=== PATIENT | male | born 1935 | race Caucasian/White ===

== ENCOUNTER 2018-07-29 11:43 | Emergency (ER) | payer MEDICARE, OTHER ==
--- NOTE | 2018-07-30 13:51 | EKG ---
Test Reason : Blood Pressure : / mmHG Vent. Rate : 072 BPM Atrial Rate : 072 BPM P-R Int : 194 ms QRS Dur : 110 ms QT Int : 416 ms P-R-T Axes : 027 -04 027 degrees QTc Int : 455 ms Sinus rhythm with marked sinus arrhythmia Otherwise normal ECG Confirmed by JAMEY SCHERER D.O. ([id number]), greeting card editor DHIRAJ JOLLEY ([id number]) on 07/30/2018 1:51:22 PM Referred By: Confirmed By:JAMEY SCHERER D.O.
== END 2018-07-29 13:25 | disposition home or self-care (01) ==
LOC: ERS 11:43
DX: I10 Essential (primary) hypertension (principal); E78.5 Hyperlipidemia, unspecified; E03.9 Hypothyroidism, unspecified; Z79.82 Long term (current) use of aspirin
CPT/HCPCS: 93005

== ENCOUNTER 2018-12-09 09:39 | Outpatient (CLI) | payer MEDICARE, OTHER ==
--- NOTE | 2018-12-09 10:45 | ULT ---
Exam: Liver ultrasound with color and spectral Doppler imaging and vascular duplex: HISTORY: Cirrhosis Coarse liver echogenicity with some minimal nodularity evidence for clinical concern for cirrhosis. S tatus post cholecystectomy. Common bile duct 0.3 cm. Borderline size spleen. Mostly obscured pancreas. Vascular duplex with color and spectral Doppler imaging demonstrates antegrade hepatic venous and por pepe venous flow. IMPRESSION: Evidence for cirrhosis. Antegrade hepatic and portal venous flow.
== END 2018-12-09 09:40 | disposition home or self-care (01) ==
LOC: BICULT 09:39
PROVIDERS: ATTEND Physician Assistant Medical
DX: K74.60 Unspecified cirrhosis of liver (principal); K59.00 Constipation, unspecified; Z86.010 Personal history of colon polyps; Z86.19 Personal history of other infectious and parasitic diseases
CPT/HCPCS: 76705

== ENCOUNTER 2019-08-17 08:11 | Outpatient (CLI) | payer MEDICARE, OTHER ==
--- NOTE | 2019-08-17 11:14 | ULT ---
HEPATIC ULTRASOUND EXAMINATION WITH DOPPLER EVALUATION: HISTORY: Cirrhosis. COMPARISON: 12/09/2018. FINDINGS: There is coarsened echotexture of the liver with nodular peripheral contour, and the liver does appea r small in size suggesting cirrhosis. The gallbladder is not visualized compatible with patient's history of prior cholecystectomy. The spleen is mildly enlarged measuring 14 cm in craniocaudal dimensions. The visualized portions of the IVC and pancreas demonstrate a normal sonographic appearance. There are 2 anechoic cystic structures seen in the right kidney, the largest mid portion of the right kidney measuring 4.2 cm demonstrating sonographic characteristics compatible with a cyst. There is a smaller 1.7 cm anechoic lesion seen in the superior pole right kidney. There is artifact seen thro ugh this region which limits adequate evaluation, but this also likely represents a small cyst. A sm all 1.7 cm anechoic cystic structure is seen in the mid portion left kidney compatible with a cyst. The left kidney measures 11.2 cm in length with the right kidney measuring 12.7 cm in length. HEPATIC DOPPLER EVALUATION WITH SPECTRAL ANALYSIS AND COLOR FLOW: There is normal directional flow seen within the portal, hepatic, and splenic veins with arterial wav eforms identified in the hepatic and splenic arteries. IMPRESSION: 1. Cirrhosis and mild splenomegaly. 2. Bilateral renal cysts. 3. Normal directional flow is present within the hepatic, splenic, and portal veins. 4. Evidence of cholecystectomy. The common duct measures 0.5 cm in diameter which is within normal limits. POS: C
== END 2019-08-17 08:12 | disposition home or self-care (01) ==
LOC: BICULT 08:11
PROVIDERS: ATTEND Physician Assistant Medical
DX: K74.60 Unspecified cirrhosis of liver (principal); Z86.19 Personal history of other infectious and parasitic diseases; R16.1 Splenomegaly, not elsewhere classified; N28.1 Cyst of kidney, acquired; Z90.49 Acquired absence of other specified parts of digestive tract
CPT/HCPCS: 76705

== ENCOUNTER 2021-11-22 08:17 | Outpatient (CLI) | payer MEDICARE, OTHER ==
[2021-11-22] MEDS ORDERED: Magnevist 469MG/ML 20 ML VIAL ONE (10:40)
[2021-11-22] MEDS ORDERED: Acetaminophen 325 MG TAB PO PRN (14:18)
[2021-11-22] MEDS ORDERED: Senokot S 8.6-50 MG TAB PO PRN (14:18)
[2021-11-22] MEDS ORDERED: hydrALAZINE 20 MG/ML VIAL SLOW IVP PRN (14:18)
[2021-11-22] MEDS ORDERED: Bisacodyl 5 MG TAB PO PRN (14:18)
[2021-11-22] MEDS ORDERED: Acetaminophen 650 MG Suppository PR PRN (14:18)
[2021-11-22] MEDS ORDERED: Multivitamins, Adult 10 ML, Folic Acid 1 MG, Thiamine HCl 100 MG in Dextrose 5 %-0.45 %... IV SCH (15:15)
[2021-11-23] MEDS ORDERED: Aspirin 81 mg Enteric Coated Tablet PO SCH (09:00)
== END 2021-11-22 08:18 | disposition home or self-care (01) ==
LOC: MRI 08:17
PROVIDERS: ATTEND Internal Medicine
DX: G46.3 Brain stem stroke syndrome (principal); I65.21 Occlusion and stenosis of right carotid artery
CPT/HCPCS: 70553; 82565

== ENCOUNTER 2021-11-22 12:04 | Observation (INO) | payer MEDICARE, OTHER ==
[2021-11-22 13:04] LABS: #Eosinphils 0.2 thou/uL (0.0-0.7); #Lymphocytes 2.2 thou/uL (1.20-3.40); #Monocytes 0.7 thou/uL (0.11-0.59); #Neutrophils 4.9 thou/uL (1.40-6.50); %Basophils 0.5 % (0.0-1.0); %Eosinophils 2.2 % (0.0-10.0); %Lymphocytes 27.6 % (21.0-51.0); %Monocytes 8.8 % (0.0-10.0); %Neutrophils 60.9 % (42.0-75.0); Hemoglobin 14.6 g/dL (14.0-18.0); Mean Corpuscular HGB CONC 32.1 g/dL (32.0-36.0); Mean Corpuscular Hemoglobin 30.2 pg (27.0-31.0); Mean Corpuscular Volume 94.1 fL (78.0-98.0); Mean Platelet Volume 9.3 fL (7.4-10.4); Platelet Count 132 thou/uL (130-400); RBC Distribution Width 11.7 % (11.5-14.5); Red Blood Cell (RBC) Count 4.84 mill/uL (4.70-6.10); White Blood Cell (WBC) Count 8.1 thou/uL (4.8-10.8)
[2021-11-22 13:29] LABS: Bilirubin Negative (Negative); Blood, Urine Negative (Negative); Clarity Clear (Clear); Glucose, Urine (Dipstick) Normal (Negative); Ketone, Urine Negative (Negative); Leukocyte Negative Leu/uL (Negative); Nitrite Negative (Negative); Protein, Urine (Dipstick) Negative (Neg-Trace); Specific Gravity, Urine 1.034 (1.002-1.036); Urobilinogen Normal mg/dL (Less than 2); pH, Urine 5.5 (5.0-9.0)
[2021-11-22 13:29] LABS: ALT (SGPT) 21 U/L (8-55); AST (SGOT) 18 U/L (5-34); Albumin 3.8 g/dL (3.4-4.8); Alkaline Phosphatase 51 U/L (40-110); Anion Gap 9 mmol/L (10-20); BUN (Urea Nitrogen) 20 mg/dL (8.4-25.7); Bilirubin, Total 0.5 mg/dL (0.2-1.2); CK (CPK) 72 U/L (30-200); Calc. Creatinine Clearance 0 mL/min (70-130); Carbon Dioxide 29 mmol/L (23-31); Chloride 105 mmol/L (98-107); Globulin 3.6 g/dL (2.4-3.5); Glucose 103 mg/dL (83-110); Potassium 4.5 mmol/L (3.5-5.1); Protein, Total 7.4 g/dL (5.8-8.1); Sodium 138 mmol/L (136-145)
[2021-11-22] MEDS ORDERED: Senokot S 8.6-50 MG TAB PO PRN (15:16)
[2021-11-22] MEDS ORDERED: Ondansetron ODT 4 MG TAB PO PRN ×2 (15:16)
[2021-11-22] MEDS ORDERED: Bisacodyl 5 MG TAB PO PRN (15:16)
[2021-11-22] MEDS ORDERED: Acetaminophen 325 MG TAB PO PRN (15:16)
[2021-11-22] MEDS ORDERED: hydrALAZINE 20 MG/ML VIAL SLOW IVP PRN (15:16)
[2021-11-22] MEDS ORDERED: Ondansetron PF 4 MG/2 ML Vial IVP PRN (15:16)
[2021-11-22] MEDS ORDERED: Acetaminophen 650 MG Suppository PR PRN (15:16)
[2021-11-22] MEDS ORDERED: Folic Acid 1 MG TAB PO SCH (15:30)
[2021-11-22] MEDS ORDERED: Multivit, Therapeutic 1 TAB PO SCH (15:30)
[2021-11-22] MEDS ORDERED: Electrolyte Replacement Protocol FS PRN (15:30)
[2021-11-22] MEDS ORDERED: Electrolyte Replacement Protocol 1 EACH FS SCH (15:30)
[2021-11-22 16:07] LABS: Hemoglobin A1c 6.1 % (4.0-6.0)
[2021-11-22 16:21] LABS: ALT (SGPT) 21 U/L (8-55); AST (SGOT) 19 U/L (5-34); Albumin 3.8 g/dL (3.4-4.8); Alkaline Phosphatase 46 U/L (40-110); Anion Gap 13 mmol/L (10-20); BUN (Urea Nitrogen) 20 mg/dL (8.4-25.7); Bilirubin, Total 0.7 mg/dL (0.2-1.2); Calc. Creatinine Clearance 0 mL/min (70-130); Calcium 8.7 mg/dL (7.8-10.44); Carbon Dioxide 26 mmol/L (23-31); Chloride 104 mmol/L (98-107); Globulin 3.6 g/dL (2.4-3.5); Glucose 99 mg/dL (83-110); Magnesium 2.5 mg/dL (1.6-2.6); Potassium 4.4 mmol/L (3.5-5.1); Protein, Total 7.4 g/dL (5.8-8.1); Sodium 139 mmol/L (136-145)
[2021-11-22 17:01] VITALS: BMI 33.9
[2021-11-22] MEDS: Thiamine HCl 200 MG/2 ML VIAL SLOW IVP SCH (18:17)
[2021-11-22] MEDS: Icosapent Ethyl 1 GM CAPSULE PO SCH (20:23)
[2021-11-22] MEDS ORDERED: Atorvastatin Calcium 10 MG TAB PO SCH (21:00)
[2021-11-23 05:50] LABS: Hemoglobin 13.9 g/dL (14.0-18.0); Mean Corpuscular HGB CONC 32.9 g/dL (32.0-36.0); Mean Corpuscular Hemoglobin 30.9 pg (27.0-31.0); Mean Corpuscular Volume 93.9 fL (78.0-98.0); RBC Distribution Width 11.5 % (11.5-14.5); Red Blood Cell (RBC) Count 4.49 mill/uL (4.70-6.10); White Blood Cell (WBC) Count 6.1 thou/uL (4.8-10.8)
[2021-11-23 06:00] LABS: Anion Gap 12 mmol/L (10-20); BUN (Urea Nitrogen) 18 mg/dL (8.4-25.7); Calc. Creatinine Clearance 84 mL/min (70-130); Calcium 8.7 mg/dL (7.8-10.44); Carbon Dioxide 27 mmol/L (23-31); Cardiac Risk 4.3 (Less than 4.5); Chloride 105 mmol/L (98-107); Cholesterol 133 mg/dl (< 200 Desired); Glucose 107 mg/dL (83-110); HDL Cholesterol 31 mg/dL (>60 Neg Risk); LDL Cholesterol, Calculated 77 mg/dL; Potassium 4.8 mmol/L (3.5-5.1); Sodium 139 mmol/L (136-145); Triglycerides 125 mg/dL (Less than 150)
[2021-11-23] MEDS ORDERED: Levothyroxine Sodium 75 MCG TAB PO SCH (06:00)
[2021-11-23 06:08] LABS: #Eosinphils 0.2 thou/uL (0.0-0.7); #Lymphocytes 1.6 thou/uL (1.20-3.40); #Monocytes 0.6 thou/uL (0.11-0.59); #Neutrophils 3.7 thou/uL (1.40-6.50); %Basophils 0.5 % (0.0-1.0); %Lymphocytes 25.7 % (21.0-51.0); %Monocytes 10.3 % (0.0-10.0); %Neutrophils 60.6 % (42.0-75.0); Mean Platelet Volume 9.3 fL (7.4-10.4); Platelet Count 99 thou/uL (130-400); Platelet Morphology Comment Appears Decreased
[2021-11-23] MEDS: Icosapent Ethyl 1 GM CAPSULE PO SCH ×3 (08:15→17:46)
[2021-11-23] MEDS ORDERED: Lisinopril 5 MG TAB PO SCH (09:00)
[2021-11-23] MEDS ORDERED: Clopidogrel Bisulfate 75 MG TAB PO SCH ×2 (09:00)
[2021-11-23] MEDS ORDERED: Multivit, Therapeutic 1 TAB PO SCH (09:00)
[2021-11-23] MEDS ORDERED: Tamsulosin HCl 0.4 MG CAP PO SCH (09:00)
[2021-11-23] MEDS ORDERED: Folic Acid 1 MG TAB PO SCH (09:00)
[2021-11-23] MEDS ORDERED: Aspirin 81 mg Enteric Coated Tablet PO SCH (09:00)
[2021-11-23 12:40] LABS: SARS-CoV-2 PCR by NAA Not Detected (NotDetected)
[2021-11-23] MEDS: Thiamine HCl 200 MG/2 ML VIAL SLOW IVP SCH (15:18)
[2021-11-23 16:40] VITALS: BP 140/74; TEMP 97.2
[2021-11-25] MEDS ORDERED: Thiamine 100 MG TAB PO SCH (15:30)
== END 2021-11-23 18:10 | disposition home or self-care (01) ==
LOC: ERS 12:04 → NEURO 15:15
PROVIDERS: ADMIT Internal Medicine; ATTEND Internal Medicine
DX: M48.02 Spinal stenosis, cervical region (principal); E53.8 Deficiency of other specified B group vitamins; R73.03 Prediabetes; R53.1 Weakness; I65.21 Occlusion and stenosis of right carotid artery; I10 Essential (primary) hypertension; E78.5 Hyperlipidemia, unspecified; E03.9 Hypothyroidism, unspecified; N40.0 Benign prostatic hyperplasia without lower urinary tract symptoms; M50.321 Other cervical disc degeneration at C4-C5 level; Z87.891 Personal history of nicotine dependence; Z79.02 Long term (current) use of antithrombotics/antiplatelets; Z79.890 Hormone replacement therapy; Z79.899 Other long term (current) drug therapy; Z20.822 Contact with and (suspected) exposure to COVID-19; G46.3 Brain stem stroke syndrome
CPT/HCPCS: 70553; 72141; 80048; 80061; 81003; 82550; 82565; 82607; 82746; 83036; 83735; 83880; 84100; 84484; 85025; 93005; 96374; 96376; 97116; 97139 ×3; 97530; 97535; 99285; G0378 ×3; U0003; U0005; 36415; 80053; 84443; A9579; J3411

== ENCOUNTER 2021-12-18 09:50 | Outpatient (CLI) | payer MEDICARE, OTHER ==
[2021-12-18 11:19] LABS: Hemoglobin 14.4 g/dL (13.5-17.5); Mean Corpuscular HGB CONC 32.2 g/dL (32.0-36.0); Mean Corpuscular Hemoglobin 29.3 pg (27.0-33.0); Mean Corpuscular Volume 90.9 fl (81.2-95.1); Mean Platelet Volume 12.4 fl (7.4-10.4); Platelet Count 128 10x3/uL (150-450); RBC Distribution Width 12.2 % (11.5-14.5); Red Blood Cell (RBC) Count 4.92 10x6/uL (4.32-5.72); White Blood Cell (WBC) Count 6.6 10x3/uL (3.5-10.5)
[2021-12-18 11:44] LABS: Anion Gap 14 mmol/L (10-20); BUN (Urea Nitrogen) 19 mg/dL (8.4-25.7); Calc. Creatinine Clearance 0 mL/min (70-130); Calcium 8.9 mg/dL (7.8-10.44); Carbon Dioxide 26 mmol/L (23-31); Chloride 105 mmol/L (98-107); Glucose 179 mg/dL (83-110); Potassium 4.2 mmol/L (3.5-5.1); Sodium 141 mmol/L (136-145)
[2021-12-18 20:34] LABS: SARS-CoV-2 PCR by NAA Not Detected (NotDetected)
== END 2021-12-18 09:51 | disposition home or self-care (01) ==
LOC: LABBT 09:50
PROVIDERS: ATTEND Neurological Surgery
DX: Z01.812 Encounter for preprocedural laboratory examination (principal); M47.12 Other spondylosis with myelopathy, cervical region; Z20.822 Contact with and (suspected) exposure to COVID-19
CPT/HCPCS: 80048; 85027; U0003; U0005

== ENCOUNTER 2021-12-23 07:49 | Observation (INO) | payer MEDICARE, OTHER ==
[2021-12-19 14:36] VITALS: BMI 33.4
[2021-12-23] MEDS ORDERED: fentaNYL Citrate/PF 100 MCG/2 ML SYRINGE ONE (11:03)
[2021-12-23] MEDS ORDERED: Phenylephrine 10 MG/ML VIAL ONE (11:04)
[2021-12-23] MEDS ORDERED: CEFAZOLIN 2 GM VIAL ONE (11:22)
[2021-12-23] MEDS ORDERED: Sodium Chloride 0.9% 100 ML ONE (11:23)
[2021-12-23] MEDS ORDERED: Dexamethasone 20 MG/5 ML VIAL ONE (11:47)
[2021-12-23] MEDS ORDERED: PROPOFOL 200 MG/20 ML VIAL ONE (11:47)
[2021-12-23] MEDS ORDERED: Ondansetron PF 4 MG/2 ML Vial ONE (11:47)
[2021-12-23] MEDS ORDERED: Ketorolac Tromethamine 30 MG/ML VIAL ONE (11:47)
[2021-12-23] MEDS ORDERED: Lidocaine 1% PF 5 ML VIAL ONE (11:47)
[2021-12-23] MEDS ORDERED: Rocuronium Bromide 10 MG/ML (10ML VIAL) ONE (11:47)
[2021-12-23] MEDS ORDERED: SUGAMMADEX SODIUM 200 MG/2 ML VIAL ONE (12:52)
[2021-12-23] MEDS ORDERED: Ondansetron HCl/PF 4 MG/2 ML Vial IVP PRN (13:16)
[2021-12-23] MEDS ORDERED: HYDROmorphone 2 MG/ML VIAL SLOW IVP PRN (13:16)
[2021-12-23] MEDS ORDERED: Promethazine HCl 25 MG/ML VIAL IVPB PRN (13:16)
[2021-12-23] MEDS ORDERED: Promethazine HCl 25 MG/ML VIAL IM PRN ×2 (13:16→16:15)
[2021-12-23] MEDS ORDERED: PACU-Morphine 4MG/ML VIAL SLOW IVP PRN (13:16)
[2021-12-23] MEDS ORDERED: Morphine 4 MG/ML VIAL ONE (13:23)
[2021-12-23] MEDS ORDERED: Fentanyl 100 MCG/2 ML VIAL ONE ×2 (13:24→13:33)
[2021-12-23] MEDS ORDERED: Morphine 2 MG/ML VIAL ONE (13:37)
[2021-12-23] MEDS ORDERED: Morphine Sulfate 2 MG/ML SYRINGE SLOW IVP PRN (14:45)
[2021-12-23] MEDS ORDERED: traMADol HCl 50 MG TAB PO PRN ×2 (16:15)
[2021-12-23] MEDS ORDERED: diphenhydrAMINE 25 MG CAP PO PRN (16:15)
[2021-12-23] MEDS ORDERED: diphenhydrAMINE 50 MG/ML VIAL IVP PRN (16:15)
[2021-12-23] MEDS ORDERED: Morphine 2 MG/ML VIAL SLOW IVP PRN (16:15)
[2021-12-23] MEDS ORDERED: Ondansetron PF 4 MG/2 ML Vial IVP PRN (16:15)
[2021-12-23] MEDS ORDERED: Promethazine 25 MG TAB PO PRN (16:15)
[2021-12-23] MEDS ORDERED: Milk Of Magnesia 30 ML UDCUP PO PRN (16:15)
[2021-12-23] MEDS ORDERED: Acetaminophen/Codeine 30-300mg Tablet PO PRN ×2 (16:15)
[2021-12-23] MEDS ORDERED: Cyclobenzaprine 10 MG TAB PO PRN (16:15)
[2021-12-23] MEDS ORDERED: Promethazine HCl 12.5 MG SUPP PR PRN (16:15)
[2021-12-23] MEDS ORDERED: Morphine 4 MG/ML VIAL SLOW IVP PRN (16:15)
[2021-12-23] MEDS ORDERED: Mag-Al 1200 mg/1200 mg/30 ML UDCUP PO PRN (16:15)
[2021-12-23] MEDS: Icosapent Ethyl 1 GM CAPSULE PO SCH ×2 (16:33→20:49)
[2021-12-23] MEDS: Sodium Chloride 0.9% 1,000 ML IV SCH (17:27)
[2021-12-23] MEDS: CEFAZOLIN 2 GM in Sodium Chloride 0.9% 100 ML IVPB SCH (20:45)
[2021-12-23] MEDS ORDERED: Simvastatin 10 MG TAB PO SCH (21:00)
[2021-12-24] MEDS: Sodium Chloride 0.9% 1,000 ML IV SCH
[2021-12-24] MEDS: CEFAZOLIN 2 GM in Sodium Chloride 0.9% 100 ML IVPB SCH ×2 (03:52→11:17)
[2021-12-24] MEDS ORDERED: Tamsulosin HCl 0.4 MG CAP PO SCH ×2 (06:00→09:00)
[2021-12-24] MEDS ORDERED: Levothyroxine Sodium 75 MCG TAB PO SCH (06:00)
[2021-12-24 07:08] LABS: #Monocytes 0.6 thou/uL (0.11-0.59); #Neutrophils 8.2 thou/uL (1.40-6.50); %Basophils 0.2 % (0.0-1.0); %Eosinophils 0.1 % (0.0-10.0); %Lymphocytes 10.6 % (21.0-51.0); %Monocytes 5.6 % (0.0-10.0); %Neutrophils 83.6 % (42.0-75.0); Hemoglobin 13.3 g/dL (14.0-18.0); Mean Corpuscular HGB CONC 33.8 g/dL (32.0-36.0); Mean Corpuscular Hemoglobin 30.9 pg (27.0-31.0); Mean Corpuscular Volume 91.3 fL (78.0-98.0); Mean Platelet Volume 9.7 fL (7.4-10.4); Platelet Count 99 thou/uL (130-400); RBC Distribution Width 11.5 % (11.5-14.5); Red Blood Cell (RBC) Count 4.32 mill/uL (4.70-6.10); White Blood Cell (WBC) Count 9.9 thou/uL (4.8-10.8)
[2021-12-24 07:24] LABS: Anion Gap 14 mmol/L (10-20); BUN (Urea Nitrogen) 19 mg/dL (8.4-25.7); Calc. Creatinine Clearance 74 mL/min (70-130); Calcium 8.3 mg/dL (7.8-10.44); Carbon Dioxide 23 mmol/L (23-31); Chloride 106 mmol/L (98-107); Glucose 165 mg/dL (83-110); Potassium 4.5 mmol/L (3.5-5.1); Sodium 138 mmol/L (136-145)
[2021-12-24] MEDS: Icosapent Ethyl 1 GM CAPSULE PO SCH (07:46)
[2021-12-24] MEDS ORDERED: Lisinopril 5 MG TAB PO SCH (09:00)
[2021-12-24] MEDS ORDERED: Folic Acid 1 MG TAB PO SCH (09:00)
[2021-12-24] MEDS ORDERED: Finasteride 5 MG TAB PO SCH (09:00)
[2021-12-24 10:33] VITALS: BP 128/79; TEMP 98.3
== END 2021-12-24 12:40 | disposition home or self-care (01) ==
LOC: SDC 07:49 → SURG A 13:15
PROVIDERS: ADMIT Neurological Surgery; ATTEND Neurological Surgery
PROC: 0RG20A0 Fusion of 2 or more Cervical Vertebral Joints with Interbody Fusion Device, Anterior Approach, Anterior Column, Open Approach (ICD-10-PCS; principal; 2021-12-23)
DX: M48.02 Spinal stenosis, cervical region (principal); M47.12 Other spondylosis with myelopathy, cervical region; I10 Essential (primary) hypertension; E78.5 Hyperlipidemia, unspecified; N40.0 Benign prostatic hyperplasia without lower urinary tract symptoms; E03.9 Hypothyroidism, unspecified; I65.21 Occlusion and stenosis of right carotid artery; Z87.891 Personal history of nicotine dependence; Z79.02 Long term (current) use of antithrombotics/antiplatelets; Z79.82 Long term (current) use of aspirin; Z79.890 Hormone replacement therapy; Z79.899 Other long term (current) drug therapy
CPT/HCPCS: 20930; 20936; 22551; 22552; 22845; 22853 ×2; 76000; 80048; 85025; 97116; 97139; C1713 ×3; J2270; 36415; 96365; G0378; J1100; J1885; J2370; J2405; J2704; J3010; J3490; J7050

== ENCOUNTER 2022-01-16 08:11 | Outpatient (CLI) | payer MEDICARE, OTHER | END 2022-01-16 08:12 | disposition home or self-care (01) | LOC: TBSIIMAG 08:11 | PROVIDERS: ATTEND Neurological Surgery | DX: M47.12 Other spondylosis with myelopathy, cervical region (principal); Z98.890 Other specified postprocedural states | CPT/HCPCS: 72040 ==

== ENCOUNTER 2022-03-12 13:16 | Outpatient (CLI) | payer MEDICARE, OTHER | END 2022-03-12 13:17 | disposition home or self-care (01) | LOC: TBSIIMAG 13:16 | PROVIDERS: ATTEND Neurological Surgery | DX: M47.12 Other spondylosis with myelopathy, cervical region (principal); Z98.1 Arthrodesis status | CPT/HCPCS: 72040 ==

== ENCOUNTER 2025-04-05 12:19 | Outpatient (CLI) | payer MEDICARE | END 2025-04-05 12:20 | disposition home or self-care (01) | LOC: BICMRI 12:19 | PROVIDERS: ATTEND Orthopaedic Surgery | DX: M51.360 Other intervertebral disc degeneration, lumbar region with discogenic back pain only (principal); M25.552 Pain in left hip; M47.816 Spondylosis without myelopathy or radiculopathy, lumbar region; M41.9 Scoliosis, unspecified | CPT/HCPCS: 72120 ==

== ENCOUNTER 2025-05-17 10:23 | Outpatient (CLI) | payer MEDICARE | END 2025-05-17 10:24 | disposition home or self-care (01) | LOC: BICMRI 10:23 | PROVIDERS: ATTEND Orthopaedic Surgery | DX: M48.062 Spinal stenosis, lumbar region with neurogenic claudication (principal); M48.02 Spinal stenosis, cervical region; M47.812 Spondylosis without myelopathy or radiculopathy, cervical region; M48.07 Spinal stenosis, lumbosacral region | CPT/HCPCS: 72141; 72148 ==